=== PATIENT | female | born 1930 | race Caucasian/White ===

== ENCOUNTER → 2017-02-19 | Outpatient (CLI) | payer MEDICARE, BC ==
[~2017-02-19] VITALS: Ht 157.5 cm; Wt 38.6 kg
[~2017-02-19] MED LIST: ACET650T5 PO; ASPI-715 PO; BETA1TAB24 PO; CALC-586 PO; CHOL4PAC16 PO; LEVO100T83 PO; NS 500 ML IV PRN; OXYB5TAB73 PO; PRAV40TA46 PO; ZOLE5INF IV; ZOLEDRONIC ACID 5MG 100 ML IV ONE
[2017-02-19 11:43] VITALS: BP 133/52; PULSE 66; RESP 16; TEMP 97.1; O2SAT 98
[2017-02-19 11:56] VITALS: Ht 157.5 cm; Wt 38.6 kg
== END ==
LOC: INF.THER 10:52
PROVIDERS: ATTEND Internal Medicine
DX: M81.0 Age-related osteoporosis without current pathological fracture (principal)
CPT/HCPCS: 96365; J3489